=== PATIENT | female | born 1965 | race Caucasian/White ===

== ENCOUNTER 2016-05-10 15:45 | Outpatient (CLI) | payer OTHER ==
[2014-12-12 20:11] VITALS: BP 121/73
== END 2016-05-10 15:46 ==
LOC: LABRHC 15:45
PROVIDERS: ATTEND Physician Assistant
DX: N12 Tubulo-interstitial nephritis, not specified as acute or chronic (principal)
CPT/HCPCS: 87086; 87186

== ENCOUNTER 2016-06-10 16:06 | Outpatient (CLI) | payer OTHER ==
[2014-12-12 20:11] VITALS: BP 121/73
[2016-06-10 17:09] LABS: eGFR (African) > 60; eGFR (Non-African) > 60
== END 2016-06-10 16:07 ==
LOC: LAB 16:06
PROVIDERS: ATTEND Family Medicine
DX: I10 Essential (primary) hypertension (principal)
CPT/HCPCS: 36415; 80048

== ENCOUNTER 2016-10-04 08:28 | Outpatient (CLI) | payer OTHER ==
[2014-12-12 20:11] VITALS: BP 121/73
[2016-10-04 08:50] LABS: BASOPHILS % 0.6 (0.0-1.5); EOSINOPHILS % 5.3 % (0.0-6.8); MEAN CORPUSCULAR HEMOGLOBIN 32.5 pg (28.0-34.0); MONOCYTES % 3.9 % (0.0-11.0); NEUTROPHILS # 4.1 # k/uL (1.4-7.7)
[2016-10-04 09:32] LABS: eGFR (African) > 60; eGFR (Non-African) > 60
== END 2016-10-04 10:28 ==
LOC: LAB 08:28
PROVIDERS: ATTEND Family Medicine
DX: E78.1 Pure hyperglyceridemia (principal); I10 Essential (primary) hypertension
CPT/HCPCS: 36415; 80053; 80061; 85025

== ENCOUNTER 2016-12-08 00:31 | Emergency (ER) | payer OTHER ==
--- NOTE | 2016-12-08 01:08 | ED Physician Documentation ---
Female Urogenital Problems - HISTORIAN Historian: patient - HPI Chief Complaint: Female Urogenital Problems Onset: days ago (2) Severity: severe Location of Pain: other (Right flank pain) Further Comments: yes (51 year old female patient presents with complaint of right flank pain radiating to groin. Patient states symptoms started 2 days ago.) - Associated Symptoms Urinary Symptoms: blood in urine, frequent urination, discomfort w/ urination, burning w/ urination, urgency w/ urination - ROS CONST: none GI/: denies: nausea, vomiting, diarrhea CVS/RESP: none EYES/ENT: none NEURO/PSYCH: none MS/SKIN/LYMPH: none - PAST HX Past History: other ("kidney stone" surgery) Other History: kidney stone(s), other (asthma, chronic bronchitis) Surgeries/Procedures: appendectomy, hysterectomy Allergies/Adverse Reactions: Allergies Allergy/AdvReac Type Severity Reaction Status Date / Time No Known Drug Allergies Allergy Verified 12/08/16 01:16 Home Medications: Ambulatory Orders Medication Instructions Recorded Aspirin [Padma] 81 mg PO DAILY 12/12/14 - SOCIAL HX Smoking History: cigarettes - FAMILY HX Family History: denies: none - VITAL SIGNS Vital Signs: Vital Signs Temp Pulse Resp BP Pulse Ox 121/73 12/12/14 20:08 - REVIEWED ASSESSMENTS Nursing Assessment Reviewed: Yes Vitals Reviewed: Yes ED Results Lab/Radiology - Radiology Radiology Impressions: Computed tomography of the abdomen and pelvis without contrast History: Right flank pain and hematuria Findings: Transverse abdomen and pelvis sections are obtained without contrast. The liver exhibits a slightly lobulated surface contour, indeterminate for early cirrhosis. However, the spleen is normal in size. A 1 cm lipid rich right adrenal adenoma is observed. The left adrenal and pancreas are unremarkable. At least three or 4 small right renal stones, a single small left renal stone, moderate right renal cortical scarring, and right renal embolization coils are observed. There is no obstructive uropathy. Cholecystectomy has been performed. Anterior abdominal wall scarring is observed. Appendectomy has been performed. Minimal atherosclerosis observed. Pelvic sections reveal a decompressed urinary bladder and hysterectomy. Pelvic bowel loops are unremarkable. Mild perivascular soft tissue stranding is present. Impression: 1. Mild perivascular soft tissue stranding, indeterminate for cystitis. 2. Bilateral renal stones, right renal scars, and right renal embolization coils. 3. Slightly lobulated liver, indeterminate for early cirrhosis. 4. Cholecystectomy, hysterectomy, right adrenal adenoma, and appendectomy. - Orders Orders: ED Orders Category Date Time Status RENAL STONE PROTOCOL [CT ABD & PELVIS W/O CON] Stat Exams 12/08/16 Ordered Female Urogenital Problems - EXAM General Appearance: moderate distress EENT: eye inspection normal, DEE Respiratory: no resp. distress, breath sounds nml CVS: reg rate & rhythm, heart sounds normal, equal pulses, no murmur, no gallop , PMI nml, no JVD, no friction rub, 24 Abdomen: soft, non-tender, no organomegaly, no distention, nml bowel sounds Back: CVA tenderness (right) Skin: color nml, no rash, warm,dry Extremities: non-tender, normal range of motion, no evidence of injury, no edema , J, RESEARCH DEVELOPMENT MANAGER Neuro: oriented X3, CN's nml as tested, motor nml, sensation nml, mood/affect nml Discharge Clincal Impression: Cystitis Referrals: Zain Michael MD [Primary Care Provider] - 2 Days Additional Instructions: group teacher your prescription and start it tomorrow Drink at least 64 oz of water daily. Avoid caffeinated beverages You may want to try Azo over the counter for urinary pain. Follow package directions Cranberry juice will help with symptoms. Tylenol every 4 hours as needed for pain/fever or ibuprofen every 6 hours as needed for pain and fever See your primary care provider for a repeat UA 48 hours after completing your antibiotic. Condition: Stable Disposition: HOME, SELF-CARE Decision to Admit: NO Decision Time: 01:33
[2016-12-08] MEDS: PHENAZOPYRIDINE HCL 200 MG TABLET PO ONE (01:42)
[2016-12-08] MEDS: CIPROFLOXACIN HCL 500 MG TABLET PO ONE (01:42)
[2016-12-08 02:11] VITALS: BP 148/75
--- NOTE | 2016-12-08 05:34 | Diagnostic Imaging Report ---
CARLA GALLARDO (BERTHA) - ER [facility] [id number] [facility] [address] [place] [address]. [id number] Report Submission Date: Dec 08, 2016 1:29:51 AM CDT Patient Study Name: PRASHANT JONES Date: Dec 08, 2016 1:09:50 AM CDT Modality Type: CT\SR Gender: F Description: CT ABD & PELVIS W/O CO : 65 Institution: [facility] Physician: CARLA GALLARDO (BERTHA) - ER Computed tomography of the abdomen and pelvis without contrast History: Right flank pain and hematuria Findings: Transverse abdomen and pelvis sections are obtained without contrast. The liver exhibits a slightly lobulated surface contour, indeterminate for early cirrhosis. However, the spleen is normal in size. A 1 cm lipid rich right adrenal adenoma is observed. The left adrenal and pancreas are unremarkable. At least three or 4 small right renal stones, a single small left renal stone, moderate right renal cortical scarring, and right renal embolization coils are observed. There is no obstructive uropathy. Cholecystectomy has been performed. Anterior abdominal wall scarring is observed. Appendectomy has been performed. Minimal atherosclerosis observed. Pelvic sections reveal a decompressed urinary bladder and hysterectomy. Pelvic bowel loops are unremarkable. Mild perivascular soft tissue stranding is present. Impression: 1. Mild perivascular soft tissue stranding, indeterminate for cystitis. 2. Bilateral renal stones, right renal scars, and right renal embolization coils. 3. Slightly lobulated liver, indeterminate for early cirrhosis. 4. Cholecystectomy, hysterectomy, right adrenal adenoma, and appendectomy. Electronically signed on Dec 08, 2016 1:29:51 AM CDT by: Baljinder OLVERA
[2016-12-08 05:42] LABS: APPEARANCE,URINE CLEAR (CLEAR); COLOR,URINE ORANGE (YELLOW); OCCULT BLOOD,URINE 3+ (NEGATIVE); PH URINE 5.5 (5.0 - 8.0)
== END 2016-12-08 01:45 | disposition home or self-care (01) ==
LOC: ED 00:31
DX: N30.90 Cystitis, unspecified without hematuria (principal)
CPT/HCPCS: 74176; 81002; 87086; 99283

== ENCOUNTER 2018-03-26 16:55 | Outpatient (CLI) | payer OTHER | END 2018-03-26 16:56 | LOC: LABRHC 16:55 | PROVIDERS: ATTEND Family Medicine | DX: N30.01 Acute cystitis with hematuria (principal); B96.1 Klebsiella pneumoniae [K. pneumoniae] as the cause of diseases classified elsewhere; Z16.11 Resistance to penicillins | CPT/HCPCS: 87086; 87186 ==

== ENCOUNTER 2018-05-21 07:25 | Day surgery (SDC) | payer OTHER ==
[2018-05-21] MEDS ORDERED: PHENYLEPHRINE HCL 10 MG/1 ML ONE (08:48)
[2018-05-21] MEDS ORDERED: LIDOCAINE HCL 2% PF 100MG/5ML VIAL IJ ONE (08:48)
[2018-05-21] MEDS ORDERED: LACTATED RINGERS 1,000 ML IV.SOLN IV ONE (08:48)
[2018-05-21] MEDS ORDERED: PROPOFOL 200 MG/20 ML VIAL IV ONE (08:48)
--- NOTE | 2018-05-24 10:16 | GI Report ---
PATIENT NAME: PRASHANT JONES DATE OF : 1965 CHART#: [id number] DATE OF PROCEDURE: 05/21/2018 REFERRING PHYSICIAN: Dr. Michael. PROCEDURE PERFORMED: Colonoscopy with biopsies. SURGEON: Ricky Gaines M.D., Lilia INDICATION FOR PROCEDURE: The patient is a 52-year-old woman referred for screening colonoscopy. She has not had one before. Her stools alternate sometimes with constipation, sometimes diarrhea. She has had appendectomy, cholecystectomy, partial hysterectomy. The patient has COPD and unfortunately still smokes, and has been a smoker for 38 years. She is referred for screening colonoscopy though she has a number of other medical issues. She has occasionally some red blood with her stool. PROCEDURE MEDICATION: Propofol, as per Anesthesia. DESCRIPTION OF PROCEDURE: The Olympus video colonoscope was advanced into the rectum. The colonoscope slowly advanced all the way to the cecum. The appendiceal orifice and terminal ileum are normal. On slow withdrawal the cecum, ascending colon, no obvious intraluminal lesions noted. Descending colon and sigmoid: A few small diverticula. At 30 cm there is an area where the mucosa looked inflamed, like an ulcer there. We did take biopsies for pathology. Retroflexion of the rectum shows internal hemorrhoids. The patient tolerated the procedure well. FINDINGS: 1. Internal hemorrhoids. 2. An ulcer/inflamed section at 30 cm, just 1 small area in the colon which was biopsied. RECOMMENDATIONS: 1. Would increase fiber in the diet, particularly post cholecystectomy. She is to take her fiber supplement like Metamucil at bedtime daily. 2. Follow up biopsy results. 3. Consider relook in her colon in 5-10 years pending the pathology on the biopsy. RICKY GAINES M.D., F.A.C.P. HENRIQUE/radha Job#: [id number] Cc: Dr. Michael] MAY
== END 2018-05-21 10:40 | disposition home or self-care (01) ==
LOC: OPSURG 07:25
PROVIDERS: ATTEND Internal Medicine Gastroenterology
DX: Z12.11 Encounter for screening for malignant neoplasm of colon (principal); K63.3 Ulcer of intestine; K64.9 Unspecified hemorrhoids; K62.5 Hemorrhage of anus and rectum; Z72.0 Tobacco use
CPT/HCPCS: 45380; 88305; J2001; J2370; J2704; J7120; S1016

== ENCOUNTER 2019-02-15 11:05 | Outpatient (CLI) | payer OTHER | END 2019-02-15 11:10 | LOC: LABRHC 11:05 | PROVIDERS: ATTEND Family Medicine | DX: R30.0 Dysuria (principal) | CPT/HCPCS: 87086; 87186 ==